=== PATIENT | male | born 1990 | race Caucasian/White ===

== ENCOUNTER 2020-07-19 11:51 | Outpatient (REF) | payer OTHER, SELFPAY ==
[2020-07-19 12:21] LABS: COVID-19 Test Positive (Negative); IDNOW Serial# 55D5AD1C
== END 2020-07-19 11:52 | disposition home or self-care (01) ==
LOC: HO.LAB 11:51
PROVIDERS: Visit Provider Internal Medicine
DX: Z20.822 Contact with and (suspected) exposure to COVID-19 (principal)
CPT/HCPCS: 36415; 87635; C9803

== ENCOUNTER 2020-08-20 09:37 | Emergency (ER) | payer OTHER, SELFPAY ==
[2020-08-20 09:58] VITALS: BP 145/87; PULSE 88; RESP 16; TEMP 36.8; O2SAT 97; BMI 41.8
--- NOTE | 2020-08-20 11:40 | ED.GENADULT ---
HPI - General Adult General Chief complaint: Wound/Laceration Stated complaint: wound check Time Seen by Provider: 08/20/20 11:31 Source: patient Mode of arrival: ambulatory History of Present Illness HPI narrative: 30-year-old male with past medical history of anxiety and depression presenting to emergency department for concerns of wound. Patient states he noticed yesterday he had a wound to his inguinal region. He states it is like a burning pain. He denies any discharge from the area. He denies shaving. He does admit to wearing a belt for work that he thinks may be rubbing on the area. He denies associated fevers or vomiting. He also states he has a wound to his coccyx region was previously drained warmth and states the bump has never gone away. That area is not painful. He denies any drainage from the area. Related Data Previous Rx's Medication Instructions Recorded bacitracin 1 appl TOPICAL BID 7 Days #14 g 08/20/20 cephalexin 500 mg PO BID 7 Days #14 cap 08/20/20 Allergies Allergy/AdvReac Type Severity Reaction Status Date / Time No Known Allergies Allergy Unverified 12/09/19 16:06 methylphenidate [Ritalin] AdvReac Unknown hyperactivity; Verified 01/01/16 00:00 he felt like a 'zombie' Review of Systems Constitutional: Constitutional: Denies fever(s) and Denies headache(s) Eyes: Eyes: Reports no additional eye complaints ENT: Denies headache(s) and Denies sore throat Cardiovascular: Cardiovascular: Denies chest pain and Denies dyspnea Respiratory: Respiratory: Denies dyspnea Gastrointestinal: Gastrointestinal: Denies abdominal pain and Denies vomiting Musculoskeletal: Musculoskeletal: Reports no additional musculoskeletal complaints Integumentary/Breasts: Comments: wound to cocyx and inguinal region Neurologic: Denies headache(s) Hematologic/Lymphatic: Hematologic/Lymphatic: Denies easy bleeding PMFSH Past Medical History Medical History Anxiety Depression Hernia Social History Social History (Updated 08/20/20 @ 12:04 by PATRIC Beltran) Patient Tobacco Use Status: Never used Tobacco Advance Directives: Yes Advance Directives Information Provided: Yes Advance Directives on File: No Current occupational status: employed Physical Exam Vital Signs: Vital Signs: Last Vital Signs Temp 98.2 F 08/20/20 09:58 Pulse 88 08/20/20 09:58 Resp 16 08/20/20 09:58 BP 145/87 H 08/20/20 09:58 Pulse Ox 97 08/20/20 09:58 Body Mass Index 41.8 Const: Other: sitting upright using cell phone General: cooperative Orientation/consciousness: patient oriented x3 HENMT: Head: Yes atraumatic Eyes: Pupils: Equal, round and reactive pupils present Neck: Neck: Yes trachea midline and Yes supple Resp: Effort & Inspection: normal respiratory effort and able to speak in complete sentences Cardio: Rate: regular rate GI: Inspection: No distended and Yes obesity Back/Spine/Pelvis: Other: normal ROM Skin: Other: dime shaped wound to right inguinal region, mild tenderness, open wound, no fluctuance, no discharge, no surrounding erythema coccyx region- no tenderness, no fluctuance, hypertrophic scar noted to coccygeal region, no induration, no purulence Neuro: Other: ambulatory with steady gait General: patient oriented x3 Cranial nerves: Yes Equal, round and reactive pupils present Extrem: General: Yes full ROM Psych: Attitude: cooperative Medical Decision Making MDM Narrative Medical decision making narrative: A 30-year-old male with anxiety and depression presenting to the emergency department for concern of a wound Vital stable, nontoxic appearing, hemodynamically stable Patient has a small dime-sized went to his inguinal region, most likely secondary to contact irritation as it is along his belt line. Folliculitis is less likely as he denies shaving. The wound is open therefore analysis is likely. He has no discharge from the area but does have some tenderness. We will give him p.o. Keflex and bacitracin for that area. No evidence of necrotizing fasciitis. No mass to suggest a hernia. In regards to his coccygeal region appears to have a hypertrophic scar, no discharge or fluctuance to suggest an abscess. No overlying tenderness to suggest cellulitis. I discussed seeing a surgeon for planned removal should he continue to have symptoms however he states he does not have any pain therefore will defer giving him surgery follow-up. Patient is requesting a work note since he did not go to work today for this. I discussed proper wound care with him. A wet dressing was applied to the wound to his inguinal region. Return precautions provided. No indication for imaging. Discharge Plan Discharge Clinical Impression: Wound disruption Patient Disposition: Home, Self-Care Instructions: Acute Wounds (ED) Additional Instructions: Please return to the emergency department for symptoms worsen, worsening redness around her wound, pus drainage that is yellow green, fevers, vomiting, worsening pain, increased swelling, or any other concerning symptoms. Place wet to dry dressings on your wound.Take antibiotics as prescribed. Avoid tight fitting pants or wearing belts to prevent irritation to the site. Prescriptions: New cephalexin 500 mg capsule 500 mg PO BID 7 Days Qty: 14 RF: 0 bacitracin 500 unit/gram ointment 1 appl topical BID 7 Days Qty: 14 RF: 0 Stand Alone Forms: Work/School Release Interventions: ED Discharge Assessment Last Done: 08/20/20 11:51 Discharge Date/Time: 08/20/20 11:51
== END 2020-08-20 11:51 | disposition home or self-care (01) ==
PROVIDERS: Emergency Provider Emergency Medicine Emergency Medical Services
DX: S31.109A Unspecified open wound of abdominal wall, unspecified quadrant without penetration into peritoneal cavity, initial encounter (principal); X58.XXXA Exposure to other specified factors, initial encounter; Y93.9 Activity, unspecified; Y92.9 Unspecified place or not applicable; Y99.9 Unspecified external cause status
CPT/HCPCS: 99282; 99283

== ENCOUNTER 2020-12-06 19:33 | Emergency (ER) | payer OTHER, SELFPAY ==
[2020-12-06 21:30] VITALS: BP 151/98; PULSE 90; RESP 18; TEMP 36.3; O2SAT 95; BMI 45.3
--- NOTE | 2020-12-06 21:57 | ED.GENADULT ---
HPI - General Adult General Chief complaint: General Medical Stated complaint: rash Time Seen by Provider: 12/06/20 21:50 Source: patient Mode of arrival: ambulatory Limitations: no limitations History of Present Illness HPI narrative: Patient use new deodorant about 5 days ago and then noticed 3 days ago some redness, irritation, drainage from the right armpit. He also noticed an odor. No fevers or chills. Related Data Previous Rx's Medication Instructions Recorded bacitracin 500 unit/gram topical 1 appl TOPICAL BID 7 Days #14 g 08/20/20 ointment cephalexin 500 mg capsule 500 mg PO BID 7 Days #14 cap 08/20/20 bacitracin zinc 500 unit-polymyxin 1 appl TOPICAL TID #144 ea 12/06/20 B 10,000 unit/gram top oint packet doxycycline monohydrate 100 mg 100 mg PO BID #14 tab 12/06/20 tablet Allergies Allergy/AdvReac Type Severity Reaction Status Date / Time methylphenidate [Ritalin] AdvReac Unknown hyperactivity; Verified 01/01/16 00:00 he felt like a 'zombie' Review of Systems Review of Systems: Yes all other systems are reviewed and are negative Constitutional: Constitutional: Reports no additional constitutional complaints, Denies body ache(s), Denies chills, Denies fever(s), Denies headache(s) and Denies weakness Eyes: Eyes: Reports no additional eye complaints and Denies change in vision ENT: Reports system reviewed and no additional complaints, except as documented, Denies dizziness, Denies headache(s), Denies nasal congestion, Denies nasal discharge and Denies neck pain Cardiovascular: Cardiovascular: Reports no additional cardiovascular complaints, Denies chest pain, Denies leg edema and Denies dyspnea Respiratory: Respiratory: Reports no additional respiratory complaints, Denies cough and Denies dyspnea Gastrointestinal: Gastrointestinal: Reports no additional gastrointestinal complaints, Denies abdominal pain, Denies diarrhea, Denies nausea and Denies vomiting Genitourinary: Genitourinary: Denies urinary incontinence Musculoskeletal: Musculoskeletal: Reports no additional musculoskeletal complaints, Denies back pain, Denies arthralgias, Denies joint swelling, Denies neck pain, Denies numbness and Denies tingling Integumentary/Breasts: Skin/Breast: Reports system reviewed and no additional complaints, except as docu, Reports swelling, Reports erythema, Reports rash and Reports wounds Neurologic: Reports system reviewed and no additional complaints, except as documented, Denies Abnormal speech present, Denies dizziness, Denies headache(s), Denies numbness, Denies tingling and Denies weakness PMFSH Past Medical History Attestation statement: The following information was validated with the patient. Source: old records reviewed and nursing notes reviewed Medical History Anxiety Depression Hernia Surgical History S/P hernia surgery Social History Social History Patient Tobacco Use Status: Never used Tobacco Advance Directives: No Advance Directives Information Provided: No Current occupational status: employed Physical Exam Vital Signs: Vital Signs: Last Vital Signs Temp 97.3 F 12/06/20 21:30 Pulse 90 12/06/20 21:30 Resp 18 12/06/20 21:30 BP 151/98 H 12/06/20 21:30 Pulse Ox 95 12/06/20 21:30 Body Mass Index 45.3 Const: General: cooperative, healthy appearing, comfortable and no acute distress Orientation/consciousness: patient oriented x3 Limitations: no limitations HENMT: Head: Yes normal to inspection Ears: hearing grossly normal bilaterally General nose exam: Normal external nose present Face and sinus: Yes normal facial exam Mouth: Normal oral and palatal mucosa present Throat: Yes posterior oropharynx normal Eyes: General: appearance normal, both eyes and all related structures Pupils: Equal, round and reactive pupils present Neck: Neck: Yes normal visual inspection Chest: Chest palpation & inspection: normal inspection of the chest Resp: Effort & Inspection: normal respiratory effort Auscultation: clear to auscultation bilaterally Cardio: Rate: regular rate Rhythm: regular rhythm Peripheral pulses: Peripheral pulses 2+ throughout GI: Inspection: Yes normal to inspection Palpation (GI): Soft to palpation and nontender Auscultation: normal bowel sounds Back/Spine/Pelvis: Thoracic/Lumbar Spine: thoracic and lumbar spine normal to inspection Skin: General skin exam: no rashes or lesions noted Neuro: General: patient oriented x3, no focal motor deficits and normal sensation to monofilament Cranial nerves: Yes Equal, round and reactive pupils present Cognition (Neuro): normal cognition Speech: No Abnormal speech present Gait exam (Neuro): Normal gait present Motor exam (neuro): 5/5 motor strength present throughout Extrem: Other: To the right axilla there is erythema, drainage, odor General: Yes normal to inspection Course Course Course Narrative: Exam consistent with an irritant dermatitis with superimposed cellulitis to the right axilla Will treat with course of antibiotics. Reviewed worrisome signs and symptoms of when to return to the emergency department. Comfortable discharge home. Medical Decision Making Medical Records Medical records reviewed: Yes I reviewed the patient's medical records. Lab Data Lab results reviewed: Yes I reviewed the patient's lab results. Discharge Plan Discharge Clinical Impression: Cellulitis Qualifiers: Site of cellulitis: unspecified site Qualified Code(s): L03.90 - Cellulitis, unspecified Patient Disposition: Home, Self-Care Instructions: Cellulitis (ED) Prescriptions: New doxycycline monohydrate 100 mg tablet 100 mg PO BID Qty: 14 RF: 0 bacitracin zinc-polymyxin B 500-10,000 unit/gram ointment in packet 1 appl topical TID Qty: 144 RF: 0 No Action cephalexin 500 mg capsule 500 mg PO BID 7 Days Qty: 14 RF: 0 bacitracin 500 unit/gram ointment 1 appl topical BID 7 Days Qty: 14 RF: 0 Stand Alone Forms: Work/School Release
== END 2020-12-06 22:10 | disposition home or self-care (01) ==
PROVIDERS: Emergency Provider Emergency Medicine
DX: L03.90 Cellulitis, unspecified (principal); Z79.899 Other long term (current) drug therapy
CPT/HCPCS: 99283

== ENCOUNTER 2021-03-25 13:45 | Emergency (ER) | payer OTHER, SELFPAY ==
--- NOTE | ~2021-03-25 | XR_ITS ---
EXAMINATION: XR CHEST CLINICAL INFORMATION: Cough COMPARISON: None TECHNIQUE: Frontal view of the chest was obtained. FINDINGS: No significant abnormality is noted involving the heart, lungs, mediastinum, bony thorax or soft tissues. XR/XR chest 1V IMPRESSION: Unremarkable examination.
[2021-03-25 15:20] VITALS: BP 130/70; PULSE 90; RESP 18; TEMP 36.8; O2SAT 96; BMI 39.0
[2021-03-25 16:24] LABS: COVID-19 Test Positive (Negative); IDNOW Serial# 9DD0AD1C
[2021-03-25 16:37] VITALS: BP 138/73; PULSE 88; RESP 17; TEMP 36.2; O2SAT 98
--- NOTE | 2021-03-25 16:59 | ECG_ITS ---
Test Reason : CHEST PAIN Blood Pressure : / mmHG Vent. Rate : 081 BPM Atrial Rate : 081 BPM P-R Int : 154 ms QRS Dur : 088 ms QT Int : 364 ms P-R-T Axes : 008 057 003 degrees QTc Int : 422 ms Normal sinus rhythm Normal ECG When compared with ECG of 05-NOV-2008 03:07, T wave amplitude has decreased in Anterior leads Referred By: Jose Michelle Electronically Signed By:GARLAND BOCANEGRA MD
--- NOTE | 2021-03-25 17:42 | ED.URI ---
HPI - URI/Sore Throat General Chief Complaint: Upper Respiratory Symptoms Stated Complaint: sob,chest discomfort Time Seen by Provider: 03/25/21 14:43 History of Present Illness HPI Narrative: Patient complains of body aches, mild cough some intermittent chest tightness, no chest pain or shortness of breath now, never had chest pain but for while this morning and felt like he could not get a full breath now he is breathing comfortably Related Data Previous Rx's Medication Instructions Recorded bacitracin 500 unit/gram topical 1 appl TOPICAL BID 7 Days #14 g 08/20/20 ointment cephalexin 500 mg capsule 500 mg PO BID 7 Days #14 cap 08/20/20 bacitracin zinc 500 unit-polymyxin 1 appl TOPICAL TID #144 ea 12/06/20 B 10,000 unit/gram top oint packet doxycycline monohydrate 100 mg 100 mg PO BID #14 tab 12/06/20 tablet Allergies Allergy/AdvReac Type Severity Reaction Status Date / Time methylphenidate [Ritalin] AdvReac Unknown hyperactivity; Verified 01/01/16 00:00 he felt like a 'zombie' Review of Systems Review of Systems: Positive for chest tightness cough and body aches x1 day Negatives are no fever no chills no dizziness no weakness no fainting no feeling faint no headache no stiff neck no neck pain no abdominal pain no nausea vomiting or diarrhea no leg swelling Yes all other systems are reviewed and are negative PMFSH Past Medical History Source: nursing notes reviewed Medical History Anxiety Depression Hernia Surgical History S/P hernia surgery Social History Social History Patient Tobacco Use Status: Never used Tobacco Advance Directives: No Advance Directives Information Provided: Yes Current occupational status: employed Physical Exam Vital Signs: Vital Signs: Last Vital Signs Temp 97.1 F 03/25/21 16:37 Pulse 88 03/25/21 16:37 Resp 17 03/25/21 16:37 BP 138/73 03/25/21 16:37 Pulse Ox 98 03/25/21 16:37 BMI result Body Mass Index 39.0 General appearance no acute distress, breathing comfortably speaking full sentences The eyes no redness or discharge The pharynx is clear with no redness swelling or exudate, mucous membranes moist Neck is supple Chest clear to auscultation bilateral no pleuritic discomfort with deep breath Heart no murmur Extremities full range of motion x4 no calf tenderness or swelling Course Course Course Narrative: EKG was a normal sinus rhythm without acute ischemic changes no ST elevations, QT was normal and intervals were normal Chest x-ray was normal no infiltrate Patient remains comfortable throughout visit he is COVID positive and was discharged MDM - URI/Sore Throat Lab Data Labs: Lab Results 03/25/21 Range/Units 15:26 COVID-19 (THOM) Positive A (Negative) COVID-19 Clin Com See Note Discharge Plan Discharge Clinical Impression: COVID-19 Patient Disposition: Home, Self-Care Additional Instructions: Chest x-ray and EKG were normal No sign of pneumonia or injury to your heart Your symptoms are common COVID symptoms, COVID is very contagious so quarantine for 10 days Return any time for difficulty breathing any worse condition You qualify for the monoclonal antibody infusion which prevents COVID from becoming severe so you can contact them Prescriptions: No Action cephalexin 500 mg capsule 500 mg PO BID 7 Days Qty: 14 RF: 0 bacitracin 500 unit/gram ointment 1 appl topical BID 7 Days Qty: 14 RF: 0 doxycycline monohydrate 100 mg tablet 100 mg PO BID Qty: 14 RF: 0 bacitracin zinc-polymyxin B 500-10,000 unit/gram ointment in packet 1 appl topical TID Qty: 144 RF: 0 Stand Alone Forms: Work/School Release
== END 2021-03-25 18:00 | disposition home or self-care (01) ==
PROVIDERS: Physician Assistant; Emergency Provider Internal Medicine
DX: U07.1 COVID-19 (principal)
CPT/HCPCS: 36415; 71045; 87635; 93005; 99283; 99284